=== PATIENT | female | born 1975 ===

== ENCOUNTER 2023-12-23 08:02 | Outpatient (OUT) | payer OTHER, SELFPAY | END 2023-12-23 08:03 | disposition home or self-care (01) | LOC: VC 08:02 | PROVIDERS: PCP Radiology Diagnostic Radiology; Visit Provider Radiology Diagnostic Radiology | DX: I83.813 Varicose veins of bilateral lower extremities with pain (principal) ==

== ENCOUNTER 2024-01-05 08:02 | Outpatient (OUT) | payer OTHER, SELFPAY ==
--- NOTE | 2024-01-05 08:04 | VEIN_ITS ---
Patient Name: SHANITA HYDE MR#: [id number] : 1975 Exam Date: 01/05/2024 Ordering Doctor: DR FRANK VERGARA M.D. RADIOLOGY REPORT PROCEDURE: [facility] COMPREHENSIVE VEIN CENTER - OFFICE VISIT INITIAL COMPARISON: None. PROGRESS NOTES: 49-year-old female who presents with a 10 year history of lower extremity pain swelling and varicose veins, left is worse than the right. The patient describes the pain as dull achy heaviness. The patient rates the pain as a 5 on a scale of 1-10. The patient's symptoms have progressed over the past year. The patient symptoms are exacerbated by prolonged standing or sitting and are partially relieved by rest, leg elevation, exercise and support stockings as well as over the counter ibuprofen. The patient denies any signs and symptoms to suggest arterial ischemia. The patient describes a family history significant for lung cancer, deep vein thrombosis and varicose veins in her mother. Stroke in her maternal grandfather. . Her daughter is 27 years old. No significant past medical history. No past surgeries. The patient is on no prescription medication . No history of deep venous thrombus or pulmonary embolus. See separate history and physical for medication list. No prior treatment for varicose or spider veins. Nursing notes were reviewed. After history and physical exam I discussed at length the pathophysiology of venous hypertension and possible treatments, therapies and strategies available. We discussed at length the importance of elevating the lower extremities above the level of the heart, increased physical activity and compression stocking use. We discussed conservative therapy with compression stockings. We discussed surgical interventions including ligation and stripping, phlebectomy. We discussed intravenous laser ablation, micro foam chemical ablation and injection sclerotherapy. Risks benefits and alternatives were discussed. The patient's questions were answered Ultrasound venous reflux study performed the same day was discussed at length with the patient. The report demonstrates mild right and moderate left great saphenous vein venous insufficiency. Bilateral incompetent varicose veins. PHYSICAL EXAM: The right leg demonstrates no significant varicose veins. Few scattered reticular and spider veins. No subcutaneous edema or skin discoloration. The left leg demonstrates moderate scattered varicose, reticular and spider veins. Mild subcutaneous edema of the ankle. No skin discoloration Both thighs, legs and feet were symmetrically warm to the touch. Good posterior tibial and dorsalis pedis pulses were present bilaterally. VEIN/VC Facility EST Comprehensive IMPRESSION: 1. Mild right and moderate left great saphenous vein venous insufficiency with saphenofemoral junction reflux and dilatation 2. Mild right and moderate left lower extremity in com varicose veins 3. Mild left ankle subcutaneous edema 4. No definite flow significant arterial disease 5. CEAP: C3, Ep, As, Pr PLAN: 1. Endovenous laser ablation of the left great saphenous vein 2. Micro foam chemical ablation left leg incompetent varicose veins 3. Bilateral injection sclerotherapy of reticular and spider veins 4. Long-term use of bilateral thigh or knee high 20-30 mm compression stockings 5. Continued physical activity for symptomatic relief Nurse notes, history and physical were reviewed and confirmed, see attached forms. The nurse was present throughout the physical exam and consultation Dictated by: Frank Vergara MD on 01/05/2024 at 10:23 Approved by: Frank Vergara MD on 01/05/2024 at 10:28
--- NOTE | 2024-01-05 08:04 | VEIN_ITS ---
Patient Name: SHANITA HYDE MR#: [id number] : 1975 Exam Date: 01/05/2024 Ordering Doctor: DR FARNK VERGARA M.D. RADIOLOGY REPORT PROCEDURE: VC EXT VENOUS REFLUX JOSÉ MIGUEL LMTD COMPARISON: None. INDICATIONS: Pain due to varicose veins of bilateral legs I83.813 TECHNIQUE: Duplex imaging of the lower extremity to assess the deep and superficial venous system for the presence of deep or superficial venous incompetence and to document the location and severity of disease. The study includes evaluation of the great saphenous vein (GSV), anterior accessory saphenous vein (AASV) and small saphenous vein (SSV). Patient scanned in reverse Trendelenburg and standing. FINDINGS: RIGHT LOWER EXTREMITY: Saphenofemoral Junction Reflux: Yes 8.0mm 1.0 sec GSV: Diam (mm) Reflux/ Time (sec) Proximal Thigh 3.5 Yes 0.9 Mid Thigh 3.0 No Distal Thigh 2.3 No Prox Calf 2.5 Yes 0.8 Mid Calf 2.0 Yes 0.4 Saphenopopliteal Junction Reflux: 0.7mm No SSV: Proximal Calf 1.3 No Mid Calf 1.7 No AASV: Proximal Thigh 3.1 No Mid Thigh 2.5 No Distal Thigh Thrombi: No acute or chronic thrombus visualized Compressibility: Normal Flow: Normal Preforator: No patent perforators visualized. Tech Note: Patent varicose vein dist/med calf 3.0mm with 0.4s reflux. LEFT LOWER EXTREMITY: Saphenofemoral Junction Reflux: Yes 9.5 mm 1.4 sec GSV: Diam (mm) Reflux/Time (sec) Proximal Thigh 6.9 Yes 1.2 Mid Thigh 5.1 Yes 1.9 Distal Thigh 6.0 Yes 2.0 Prox Calf 5.0 Yes 1.3 Mid Calf 4.7 Yes 1.5 Saphenopopliteal Junction Relux: 3.0 mm No SSV: Proximal Calf 1.7 No Mid Calf 1.5 No AASV: Not present Thrombi: No acute or chronic thrombus visualized Compressibility: Normal Flow: Normal [employer]: No patent perforators visualized. Tech Note: Incompetent GSV. Patent varicose vein prox/med calf 4.9mm with 2.8s reflux. Patent varicose vein mid/med calf 6.5mm with 1.0s reflux. CONCLUSION: 1. Moderate left great saphenous vein venous insufficiency with saphenofemoral junction reflux in dilatation 2. Incompetent bilateral varicose veins, left greater than right Dictated by: Frank Vergara MD on 01/05/2024 at 09:13 Approved by: Frank Vergara MD on 01/05/2024 at 09:15
== END 2024-01-05 08:03 | disposition home or self-care (01) ==
LOC: VC 08:02
PROVIDERS: PCP Radiology Diagnostic Radiology; Visit Provider Radiology Diagnostic Radiology
DX: I83.813 Varicose veins of bilateral lower extremities with pain (principal)
CPT/HCPCS: 93970; G0463

== ENCOUNTER 2024-01-26 08:57 | Outpatient (OUT) | payer OTHER, SELFPAY ==
--- NOTE | 2024-01-26 08:58 | VEIN_ITS ---
[address] [address] Patient Name: SHANITA HYDE MRN: [id number] date: 1975 Sex: F Assigned Patient Location: Current Patient Location: Accession/Order Number: [id number] Exam Date: 01/26/2024 09:00 Report Date: 01/26/2024 10:22 At the request of: MINGO BOUDREAUX Procedure: VC Endovenous Ablation 1VeinLT EXAMINATION: VC Endovenous Ablation 1Vein, left great saphenous vein HISTORY: Pain due to varicose veins of bilateral legs I83.813 COMPARISON: No relevant comparison available. TECHNIQUE: The risks and benefits of the procedure had been previously discussed, and were rediscussed at length. Informed written consent was obtained. Mita Helms and Hammad Diaz assisted. Time out procedure was performed. The left lower extremity was prepared and draped in the usual sterile fashion to allow knee flexion in the sterile field. Duplex ultrasound probe was draped in a sterile cover, sterile transmission gel was used. Venous mapping was performed with the areas of dilation and large tributaries marked. The total length was 28 cm from the entry at the knee to 3 cm below the saphenofemoral junction. The diameter of the greater saphenous vein ranged from 6-7 mm. A 30 gauge needle and 1% buffered lidocaine was used to anesthetize the entry site. A 4 mm incision was made with a scalpel and the saphenous vein was entered percutaneously under direct ultrasound guidance with a micropuncture set, a single stick was successful in gaining access. A micro-guide wire was inserted and the needle removed. A micro-set including a dilator was inserted over the microwire and the needle and dilator were removed. A 0.018 guide wire was inserted through the micro-set and threaded through the saphenous vein to the saphenofemoral junction. The dilator was removed and an introducer sheath was inserted over the wire until the end of the sheath entered the saphenofemoral junction. The dilator and wire were removed and the 600 micron fiber was introduced and placed and positioned so that it extended beyond the sheath and was 3 cm peripheral to the saphenofemoral femoral junction. Final position of the fiber was determined by ultrasound guidance and duplex imaging. Tumescent anesthetic was delivered by ultrasound guidance. 125 cc of fluid was delivered along the entire course of the saphenous vein. The solution consisted of 1000 cc of normal saline with 40 mL of 1% lidocaine and 20 mL of sodium bicarbonate. A final positioning check was made. The energy source was turned on by means of the foot pedal and the fiber and sheath were withdrawn. The total number of Joules delivered was 1369. The laser was active for 171 seconds under continuous pulse, average laser use of 8 J. Laser start time 9:49 AM 01/26/2024 . Laser stop time 9:52 AM 01/26/2024 . A duplex ultrasound revealed compressibility and flow at the saphenofemoral junction immediately after the procedure. Hemostasis at the access site was achieved. The skin incision of the saphenous vein was closed with a 4 x 4. A compression stocking was applied. Postop instructions were given. A follow up appointment was recommended and scheduled. The patient tolerated the procedure well and was discharged in good condition . VEIN/VC Endovenous Ablation 1VeinLT IMPRESSION: Technically successful endovenous laser ablation left great saphenous vein Electronically authenticated by: MINGO BOUDREAUX Date: 01/26/2024 10:22
[2024-01-26] MEDS: LIDOCAINE HCL 1% 100 MG/10 ML MDV INJ (09:22)
[2024-01-26] MEDS: 0.9 % SODIUM CHLORIDE 500 ML, LIDOCAINE HCL 20 ML, SODIUM BICARBONATE 10 MEQ INJ (09:23)
== END 2024-01-26 08:58 | disposition home or self-care (01) ==
LOC: VC 08:57
PROVIDERS: PCP Radiology Diagnostic Radiology; Visit Provider Radiology Diagnostic Radiology
DX: I83.813 Varicose veins of bilateral lower extremities with pain (principal)
CPT/HCPCS: 36478

== ENCOUNTER 2024-02-02 09:27 | Outpatient (OUT) | payer OTHER, SELFPAY ==
--- NOTE | 2024-02-02 09:29 | VEIN_ITS ---
Patient Name: SHANITA HYDE MR#: [id number] : 1975 Exam Date: 02/02/2024 Ordering Doctor: DR MINGO BOUDREAUX M.D. RADIOLOGY REPORT PROCEDURE: FACILITY EST LMTD VEIN CENTER - OFFICE VISIT FOLLOW UP COMPARISON: None. PROGRESS NOTES: The patient reports improvement in leg symptoms. There has been interval reduction in varicosities. The patient has followed our recommendations to walk 20-30 minutes once or twice per day since the procedure. Physical exam demonstrates decrease in varicosities of the leg. Persistent varicosities are identified along the legs bilaterally. Review of the ultrasound performed the same day demonstrates occlusive thrombus extending throughout the treated vein(s), see separate report, consistent with a successful ablation. No thrombus extending into or beyond the saphenofemoral junction. The patient expressed a desire to proceed with treatment of incompetent branch saphenous varicosities. The patient was informed that treatment was a process and would require 1-2 procedures/sessions. VEIN/ Facility EST TD IMPRESSION: 1. Successful ablation of the left great saphenous vein(s). 2. Persistent branch saphenous veins and lower extremity symptoms. PLAN: 1. Microfoam chemical ablation of incompetent branch saphenous varicosities. 2. Sclerotherapy of scattered spider veins. Nurse notes, history and physical were reviewed and confirmed, see attached forms. The nurse was present throughout the physical exam and consultation Dictated by: Chung Hay M.D. on 02/02/2024 at 12:49 Approved by: Chung aHy M.D. on 02/02/2024 at 12:54
--- NOTE | 2024-02-02 09:29 | VEIN_ITS ---
Patient Name: SHANITA HYDE MR#: [id number] : 1975 Exam Date: 02/02/2024 Ordering Doctor: DR MINGO BOUDREAUX M.D. RADIOLOGY REPORT PROCEDURE: VC EXT VENOUS LT LIMITED COMPARISON: None. INDICATIONS: Phlebitis of superficial veins of lt lower extremity I80.02 TECHNIQUE: Lower extremity hidalgo scale and Duplex Doppler evaluation of the deep venous system from the inguinal ligament through the calf veins. FINDINGS: REGION: Left lower extremity. THROMBI: Negative for DVT. Heat induced thrombus visualized 0.9 cm from the SFJ. The heat induced thrombus extends from groin to distal thigh. COMPRESSIBILITY: Non-compressible segments corresponding to thrombus FLOW: Areas of no flow corresponding to thrombus OTHER: CONCLUSION: 1. Successful post ablation occlusion of left great saphenous vein. Dictated by: Chung Hay M.D. on 02/02/2024 at 11:07 Approved by: Chung Hay M.D. on 02/02/2024 at 11:09
--- OUTSIDE RECORDS SUMMARY | 2024-02-02 09:33 | XMS_ITS | CCD ---
Author Organization [facility] Care Team Providers Care Material Disposition Inspector Name Role Phone NONE, XXXX Primary Care Physician Unavailab NOLAN Desai Attending Unavailable Medications Current Medications Medication Drug Class(es) Dates Sig (Normalized) Sig (Original) oseltamivir 75 mg oral capsule (1 source) Neuraminidase Inhibitor Start: 09-26-2023 End: 10-01-2023 take 1 capsule by mouth twice daily Tamiflu 75 mg Cap 75 mg = 1 cap(s), Oral, BID, X 5 day(s), # 10 cap(s), Refills(s) 0, Pharmacy: [id number], 163, cm, 09/26/23 14:39:00 EST, Height/Length Dosing, 57, kg, 09/26/23 14:39:00 EST, Weight Dosing Start Date: 09/26/23 Stop Date: 10/01/23 Status: Ordered Problems Problem Classification Problem Date Documented Da te Episodic/Chronic Influenza (2 sources) Influenza; Translations: [Influenza due to other identified influenza virus with other respiratory manifestations] Onset: 09-26-2023 Episodic Viral infection (1 source) Viral disease 09-26-2023 Episodic Results Test Name Value Interpretation Reference Range Jose parker [facility] Office/Clini c Noteon 09-27-2023 Family Medicine Office/Clinic Note Chief Complaint cough, body aches, temp HPI Staff Shanita is a 48 year old female here for the flu symptoms for 2 days cough, body aches, temp of 102 yesterday took day quill and ibuprofen took a COVID test and it was negative yesterday History of Present Illness Reviewed and agree with above documented HPI by registered medical transcriptionist. Portions of this record may have been created with voice recognition artificial intelligence software, specifically [employer], [employer] and or [employer]. Substitutions may have occurred due to the inherent limitations of voice recognition and artificial intelligence software. Patient is a 48-year-old female who presents to [facility] care, for body aches, nonproductive cough, and fever. Patient states symptoms started yesterday, she had a fever 102, took lufs-ile-sinpunm ibuprofen, states she has been taking sjwl-lzy-bjxpvod DayQuil, has been helping, and NyQuil and night. Patient states she took a test herself at home and was negative for COVID-19, states she is concerned she could have influenza. Patient states she has been able to eat and drink, some discomfort, bloating swallowing. Patient denies having any headaches, dizziness, nausea or vomiting, chills, difficulty swallowing, productive cough, worsening, chest pain, shortness of breath, palpitation, or weakness. Review of Systems PHQ Score Initial Depression Screen Score: 0 SCORE Physical Exam Vitals & Measurements T: 36.6 ?C(Oral) HR: 68(Peripheral) BP: 122/70 SpO2: 99% HT: 64 in HT: 163 cm WT: 57 kg WT: 125.4 lb BMI: 21.45 General: Well developed, well nourished, in no acute distress, patient does appear ill but not septic, no respiratory distress noted. Patient answers questions appropriately and in complete sentences, and follows commands appropriately. Head: Normocephalic/atrauma tic positive upper respiratory infection. No facial swelling or cellulitis. Eyes: Pupils equal, round, and reactive and extraocular movements intact Ears: Bilateral TMs and bilateral external canal are both within normal limits. Hearing is intact. Nose: No deformity, discharge, inflammation, or lesions Mouth: Mucous membranes moist. Normal oropharynx, and posterior pharynx without erythremia, lesions, exudates, or enlarged tonsils. Neck: Neck supple. No masses or palpable cervical nodes. Trachea midline. No mastoid tenderness. Lungs: Normal respiratory effort and clear to auscultation throughout, no wheezing, rales, crackles, or decreased breath sounds noted on examination. Cardio: regular rate and rhythm, no murmur.No chest wall deformity, no chest wall tenderness Extremity: Patient is able to move all 4 extremities equally without any weakness or pain. Neurologic: Grossly normal Skin: No rashes, ulcerations, or suspicious lesions Lymph Nodes: no lad Mental Status: alert, active Assessment/Plan Discuss with patient she is positive for influenza A and influenza B. No breathing treatment or chest imaging were indicated at this time. 48-year-old female presents to [facility] care, for positive influenza A and influenza B, patient works as a longterm, patient did appear ill but not septic, no respiratory distress, difficulty swallowing, pain, dyspnea exertion, palpitation, weakness. Patient was given a prescription for Tamiflu, she is within the window to be treated with it, ultw-zww-wordvor ibuprofen and Tylenol together every 8 hours with food, for body aches, headaches, fevers. Drink plenty water to stay hydrated. Given a work excuse note. Follow-up with primary care provider as needed. 1. Influenza A, (J10.1: Influenza due to other identified influenza virus with other respiratory manifestations)Influe nza B See above Ordered: oseltamivir, 75 mg = 1 cap(s), Oral, BID, X 5 day(s), # 10 cap(s), Refills(s) 0, Pharmacy: [facility], 163, cm, 09/26/23 14:39:00 EST, Height/Length Dosing, 57, kg, 09/26/23 14:39:00 EST, Weight Dosing Orders: Influenza Type A&B POC 90826 Follow-up With When Contact Information NONE, XXXX [phone] Additional Instructions: Patient Education Influenza, Adult, Cpyz-ta-Mfdm Problem List/Past Medical History Ongoing Influenza A Influenza B Viral illness Historical No qualifying data Medications Tamiflu 75 mg Cap, 75 mg= 1 cap(s), Oral, BID Allergies No Known Medication Allergies Social History Tobacco Never (less than 100 in lifetime) Tobacco Use:. Never Smokeless Tobacco Use:., 09/26/2023 Immunizations Vaccine Date Status SARS-CoV-2 (COVID-19) mRNA BNT-162b2 vax 09/15/2021 Recorded SARS-CoV-2 (COVID-19) mRNA BNT-162b2 vax 08/25/2021 Recorded Lab Results Ambulatory Point of Care Results Influenza A POC: Positive (09/26/23 14:54:00) Influenza B POC: Positive (09/26/23 14:54:00) Normal [facility] Comment on above: Result Comment: Elec tronically Signed By: NURIS TEJEDA, NOLAN\.br\Date and Time Signed: 09/27/23 14:24 EST Patient Educationon 09-27-20 Patient Education Infectious Disease Influenza, Adult Influenza is also called the flu. It is an infection in the lungs, nose, and throat (respiratory tract). It spreads easily from person to person (is contagious). The flu causes symptoms that are like a cold, along with high fever and body aches. What are the causes? This condition is caused by the influenza virus. You can get the virus by: ? Breathing in droplets that are in the air after a person infected with the flu coughed or sneezed. ? Touching something that has the virus on it and then touching your mouth, nose, or eyes. What increases the risk? Certain things may make you more likely to get the flu. These include: ? Not washing your hands often. ? Having close contact with many people during cold and flu season. ? Touching your mouth, eyes, or nose without first washing your hands. ? Not getting a flu shot every year. You may have a higher risk for the flu, and serious problems, such as a lung infection (pneumonia), if you: ? Are older than 65. ? Are . ? Have a weakened disease-fighting system (immune system) because of a disease or because you are taking certain medicines. ? Have a long-term (chronic) condition, such as: ? Heart, kidney, or lung disease. ? Diabetes. ? Asthma. ? Have a liver disorder. ? Are very overweight (morbidly obese). ? Have anemia. What are the signs or symptoms? Symptoms usually begin suddenly and last 4?14 days. They may include: ? Fever and chills. ? Headaches, body aches, or muscle aches. ? Sore throat. ? Cough. ? Runny or stuffy (congested) nose. ? Feeling discomfort in your chest. ? Not wanting to eat as much as normal. ? Feeling weak or tired. ? Feeling dizzy. ? Feeling sick to your stomach or throwing up. How is this treated? If the flu is found early, you can be treated with antiviral medicine. This can help to reduce how bad the illness is and how long it lasts. This may be given by mouth or through an IV tube. Taking care of yourself at home can help your symptoms get better. Your doctor may want you to: ? Take pysk-wmw-lhkatym medicines. ? Drink plenty of fluids. The flu often goes away on its own. If you have very bad symptoms or other problems, you may be treated in a hospital. Follow these instructions at home: Activity ? Rest as needed. Get plenty of sleep. ? Stay home from work or school as told by your doctor. ? Do not leave home until you do not have a fever for 24 hours without taking medicine. ? Leave home only to go to your doctor. Eating and drinking ? Take an ORS (oral rehydration solution). This is a drink that is sold at pharmacies and stores. ? Drink enough fluid to keep your pee pale yellow. ? Drink clear fluids in small amounts as you are able. Clear fluids include: ? Water. ? Ice chips. ? Fruit juice mixed with water. ? Low-calorie sports drinks. ? Eat bland foods that are easy to digest. Eat small amounts as you are able. These foods include: ? Bananas. ? Applesauce. ? Rice. ? Lean meats. ? Cabool. ? Crackers. ? Do not eat or drink: ? Fluids that have a lot of sugar or caffeine. ? Alcohol. ? Spicy or fatty foods. General instructions ? Take ifcy-ccf-egsxdav and prescription medicines only as told by your doctor. ? Use a cool mist humidifier to add moisture to the air in your home. This can make it easier for you to breathe. ? When using a cool mist humidifier, clean it daily. Empty water and replace with clean water. ? Cover your mouth and nose when you cough or sneeze. ? Wash your hands with soap and water often and for at least 20 seconds. This is also important after you cough or sneeze. If you cannot use soap and water, use alcohol-based hand poker room manager. ? Keep all follow-up visits. How is this prevented? ? Get a flu shot every year. You may get the flu shot in late summer, fall, or winter. Ask your doctor when you should get your flu shot. ? Avoid contact with people who are sick during fall and winter. This is cold and flu season. Contact a doctor if: ? You get new symptoms. ? You have: ? Chest pain. ? Watery poop (diarrhea). ? A fever. ? Your cough gets worse. ? You start to have more mucus. ? You feel sick to your stomach. ? You throw up. Get help right away if you: ? Have shortness of breath. ? Have trouble breathing. ? Have skin or nails that turn a bluish color. ? Have very bad pain or stiffness in your neck. ? Get a sudden headache. ? Get sudden pain in your face or ear. ? Cannot eat or drink without throwing up. These symptoms may represent a serious problem that is an emergency. Get medical help right away. Call your local emergency services (911 in the [place] ? Do not wait to see if the symptoms will go away. ? Do not drive yourself to the hospital. Summary ? Influenza is also call (more content not included)... Normal [facility] Patient Letter FTon 2022 Patient Letter [facility] [address], [place] [address] September 26, 2023 SHANITA HYDE [address] [place] [address] : 1975 Please excuse HYDE SHANITA from work . Date and/or Time of Absence: From: 09/26/23 May return to work on: 09/29/23 Restrictions: None Comments: Please excuse due to an acute illness. Provider Signature: Nolan Lawler PA-C [facility] [address] [place] [address] Normal [facility] Vital Signs Date Time Vital Sign Value Performing Clinician Facility 09-26-2023 14:37-0500 Blood Pressure Location NOLAN LAWLER [facility] 09-26-2023 14:37-0500 Body temperature 97.88 [degF] NOLAN LAWLER [facility] 09-26-2023 14:37-0500 Diastolic blood pressure 70 mm[Hg] NOLAN LAWLER [facility] 09-26-2023 14:37-0500 Heart rate 68 /min [facility] 09-26-2023 14:37-0500 SaO2% (BldA) [Mass fraction] 99 % [facility] 09-26-2023 14:37-0500 Systolic blood pressure 122 mm[Hg] [facility] Encounters Encounter Date Encounter Type Care Provider Facility Start: 09-26-2023 End: 09-27-2023 ambulatory [facility] Facility:[facility] Start: 09-26-2023 End: 09-26-2023 Patient encounter procedure [facility] Immunizations Immunization Date Immunization Notes Care Provider Fa cility 09-15-2021 SARS-CoV-2 (COVID-19 ) mRNA BNT-162b2 vax [facility] 08-25-2021 SARS-CoV-2 (COVID-19 ) mRNA BNT-162f0 mix [facility] Payers Date Payer Category Payer Unknown [id number] 1975 Unknown [id number] Social History Date Type Detail Facility Start: 09-26-2023 Tobacco smoking status Never s moked tobacco (finding) [facility] Tobacco smoking status Never Felisha [facility] Sex Assigned At Female [facility] Functional Status Date Assessment Result Facility 09-26-2023 Functional Status N/A [facility] Evaluation + Plan note Note Date & Type Note Facility Evaluation + Plan note No data available for this section [facility] Hospital Discharge instructions Note Date & Type Note Facility Hospital Discharge instructions No data available for this section [facility] Progress note Note Date & Type Note Facility Progress note No data available for this section [facility] Summary Purpose Family History No Family History Records Found Advance Directives No Advanced Directives Records Found Additional Source Comments INFORMATION SOURCE (unrecogn ized section and content) DATE CREATED AUTHOR 09/27/2023 [facility] FOR RECORDS PERTAINING TO PATIENTS WHO ARE OR HAVE BEEN ENROLLED IN A CHEMICAL DEPENDENCY/SUBSTANCEABUSE PROGRAM, SOME INFORMATION MAY BE OMITTED. This clinical summary was aggregated from multiple sources. Caution should be exercised in using it in the provision of clinical care. This summary normalizes information from multiple sources, and as a consequence, information in this document may materially change the coding, format and clinical context of patient data. In addition, data may be omitted in some cases. CLINICAL DECISIONS SHOULD BE BASED ON THE PRIMARY CLINICAL RECORDS. [email or web address] [facility]. provides no warranty or guarantee of the accuracy or completeness of information in this document.
== END 2024-02-02 09:28 | disposition home or self-care (01) ==
LOC: VC 09:27
PROVIDERS: PCP Radiology Diagnostic Radiology; Visit Provider Radiology Diagnostic Radiology
DX: I80.02 Phlebitis and thrombophlebitis of superficial vessels of left lower extremity (principal)
CPT/HCPCS: 93971; G0463

== ENCOUNTER 2024-02-10 09:30 | Outpatient (OUT) | payer OTHER, SELFPAY ==
--- NOTE | 2024-02-10 09:33 | VEIN_ITS ---
[address] [address] Patient Name: SHANITA HYDE MRN: [id number] date: 1975 Sex: F Assigned Patient Location: Current Patient Location: Accession/Order Number: [id number] Exam Date: 02/10/2024 09:35 Report Date: 02/10/2024 10:19 At the request of: MINGO BOUDREAUX Procedure: VC INJ Foam Sclerosant WUS ACCOUNTS OFFICER PROCEDURE: VC INJ Foam Sclerosant WUS ACCOUNTS OFFICER COMPARISON: None. HISTORY: I83.813 Painful Varicose Veins Pre-operative Diagnosis: CEAP class 3 venous insufficiency with pain, tenderness, edema and incompetent great saphenous and varicose vein(s), chronic venous insufficiency left leg secondary to venous incompetence Post-operative Diagnosis: CEAP class 3 venous insufficiency with pain, tenderness, edema and incompetent great saphenous and varicose vein(s), chronic venous insufficiency left leg secondary to venous incompetencein(s), chronic venous insufficiency leg secondary to venous incompetence Procedure Performed: 1. Ultrasound-guided microfoam chemical ablation with Varithenaregistered 2. Intraoperative ultrasound guidance Anesthesia: None Indications for Procedure: 49-year-old female who presents with a long history of lower extremity pain and swelling and varicose veins. The patient failed conservative medical therapy including medical compression stockings, exercise and analgesics. Prior procedures include endovenous laser ablation. Multiple incompetent varicosities of the left leg. Duplex scan showed reflux and enlarged diameters up to 4 mm. The patient underwent informed consent including management options where the complications of infection, bleeding, pain, and skin injury were discussed. Particular attention was spent discussing thrombus extension and deep vein thrombosis as well as the possibility of pulmonary embolus and treatment with oral or injectable blood thinners. Procedure: The patient walked to the procedure room. All applicable staff donned appropriate apparel. A procedure timeout was performed to confirm correct patient, correct extremity, correct procedure, and correct room set-up including presence of all applicable supplies, devices, and drugs. A duplex ultrasound, performed by myself confirmed the location and incompetence of branch saphenous varicosities and their course was marked on the skin together with the dilated tributaries. The extent of treatment of the vein and the associated varicosities was determined through ultrasound mapping. The skin was prepped and then punctured with a butterfly needle and advanced under ultrasound guidance. The Varithenaregistered canister was activated and the canister was primed and purged as required in the instructions for use. Varithenaregistered was drawn into a sterile syringe. The following injections were made: 6 cc injected into the distal incompetent patent 5 mm left great saphenous vein with flow into a branch saphenous tributaries 6 cc injected into a 4 mm left mid medial leg varicose vein Varithenaregistered was slowly administered at 0.5-1.0 cc/second with close observation by ultrasound of its course in the vessels. Total volume utilized was: 12cc. Following administration of Varithenaregistered the leg was elevated and the patient was asked to repeatedly dorsiflex the ankle to limit flow of Varithenaregistered into perforating veins. Once appropriate spasm had been confirmed in the treated veins, the vascular catheter was removed from the leg and light pressure was applied over the puncture site for hemostasis. The common femoral and deep superficial veins were then evaluated for flow and compressibility prior to dressing placement. The lower extremity was kept elevated at 45 degrees above the horizontal and cording material was applied over the saphenous segments and tributaries to allow for eccentric compression over the target vessels including the targeted saphenous vein(s). A multilayer dressing was applied consisting of foam pads, coban and thigh-high 20-30 mm Hg compression elastic support hose were placed on the patient. The leg was lowered only after compression had been applied and the patient was immediately ambulatory. The patient ambulated 10 minutes under supervision and was without apparent concerns at time of release. Post-care instructions include advising patient to keep post-treatment bandages in place and dry for 48 hours, avoid extended periods of inactivity, avoid heavy exercise for one week, wear compression stockings on the treated leg continuously for two weeks, to walk daily for 10 minutes over the next month. The patient was instructed to take an anti-inflammatory medicine as needed and to follow up for color duplex scan of the Saphenous veins, the treated branch saphenous varicosities, the adjacent deep veins, and additional treatment within 7 days. PERSONNEL: Hammad Diaz RN Electronically authenticated by: MINGO BOUDREAUX Date: 02/10/2024 10:19
--- OUTSIDE RECORDS SUMMARY | 2024-02-10 09:46 | XMS_ITS | CCD ---
Author Organization [facility] Care Team Providers Care Director Of Search Engine Marketing Name Role Phone NONE, XXXX Primary Care [...] day(s), # 10 cap(s), Refills(s) 0, Pharmacy: [id number], 163, cm, 09/26/23 14:39:00 EST, Height/Length [...] and agree with above documented HPI by medical parasitologist. Portions of this record may have been created with voice recognition artificial intelligence software, specifically [employer], [employer] and or [employer]. Substitutions may have occurred due to the inherent limitations of voice recognition and artificial intelligence software. Patient is a 48-year-old female who presents to [facility] care, for body aches, nonproductive cough, and fever. Patient states symptoms started yesterday, she had a fever 102, took nnnp-byj-gccbxrk ibuprofen, states she has been taking cgfl-ewk-xkhxabp DayQuil, has been helping, and NyQuil and [...] at this time. 48-year-old female presents to [facility] care, for positive influenza A and influenza B, patient works as a long term, patient did appear ill but not septic, no respiratory distress, difficulty swallowing, pain, dyspnea exertion, palpitation, weakness. Patient was given a prescription for Tamiflu, she is within the window to be treated with it, kopd-soh-mqhdojo ibuprofen and Tylenol together every 8 hours [...] day(s), # 10 cap(s), Refills(s) 0, Pharmacy: [facility], 163, cm, 09/26/23 14:39:00 EST, Height/Length Dosing, 57, kg, 09/26/23 14:39:00 EST, Weight Dosing Orders: Influenza Type A&B POC 03682 Follow-up With When Contact Information NONE, XXXX [phone] Additional Instructions: Patient Education Influenza, Adult, Uqpq-fh-Agoi Problem List/Past Medical History Ongoing Influenza A [...] Influenza B POC: Positive (09/26/23 14:54:00) Normal [facility] Comment on above: Result Comment: Elec tronically [...] doctor may want you to: ? Take rgwu-ygb-txlvdzu medicines. ? Drink plenty of fluids. The [...] Applesauce. ? Rice. ? Lean meats. ? [place]. ? Crackers. ? Do not eat or drink: ? Fluids that have a lot of sugar or caffeine. ? Alcohol. ? Spicy or fatty foods. General instructions ? Take gvzy-pmk-xooyloa and prescription medicines only as told by [...] use soap and water, use alcohol-based hand box spring maker. ? Keep all follow-up visits. How is [...] also call (more content not included)... Normal [facility] Patient Letter FTon 2022 Patient Letter [facility] [address], [place] [address] September 26, 2023 SHANITA HYDE [address] [place] [address] : 1975 Please excuse HYDE SHANITA from work . Date and/or Time of Absence: From: 09/26/23 May return to work on: 09/29/23 Restrictions: None Comments: Please excuse due to an acute illness. Provider Signature: Nolan Lawler PA-C [facility] [address] [place] [address] Normal [facility] Vital Signs Date Time Vital Sign Value Performing Clinician Facility 09-26-2023 14:37-0500 Blood Pressure Location NOALN LAWLER [facility] 09-26-2023 14:37-0500 Body temperature 97.88 [degF] NOLAN LAWLER [facility] 09-26-2023 14:37-0500 Diastolic blood pressure 70 mm[Hg] NOLAN LAWLER [facility] 09-26-2023 14:37-0500 Heart rate 68 /min [facility] 09-26-2023 14:37-0500 SaO2% (BldA) [Mass fraction] 99 % [facility] 09-26-2023 14:37-0500 Systolic blood pressure 122 mm[Hg] [facility] Encounters Encounter Date Encounter Type Care Provider Facility Start: 09-26-2023 End: 09-27-2023 ambulatory [facility] Facility:[facility] Start: 09-26-2023 End: 09-26-2023 Patient encounter procedure [facility] Immunizations Immunization Date Immunization Notes Care Provider Fa cility 09-15-2021 SARS-CoV-2 (COVID-19 ) mRNA BNT-162b2 vax [facility] 08-25-2021 SARS-CoV-2 (COVID-19 ) mRNA BNT-162g0 flx [facility] Payers Date Payer Category Payer Unknown [id number] 1975 Unknown [id number] Social History Date Type Detail Facility Start: 09-26-2023 Tobacco smoking status Never s moked tobacco (finding) [facility] Tobacco smoking status Never Felisha [facility] Sex Assigned At Female [facility] Functional Status Date Assessment Result Facility 09-26-2023 Functional Status N/A [facility] Evaluation + Plan note Note Date & Type Note Facility Evaluation + Plan note No data available for this section [facility] Hospital Discharge instructions Note Date & Type Note Facility Hospital Discharge instructions No data available for this section [facility] Progress note Note Date & Type Note Facility Progress note No data available for this section [facility] Summary Purpose Family History No Family History Records Found Advance Directives No Advanced Directives Records Found Additional Source Comments INFORMATION SOURCE (unrecogn ized section and content) DATE CREATED AUTHOR 09/27/[address] [facility] FOR RECORDS PERTAINING TO PATIENTS WHO [...] BE BASED ON THE PRIMARY CLINICAL RECORDS. [facility]. provides no warranty or guarantee of the accuracy or completeness of information in this document.
== END 2024-02-10 09:31 | disposition home or self-care (01) ==
LOC: VC 09:30
PROVIDERS: PCP Radiology Diagnostic Radiology; Visit Provider Radiology Diagnostic Radiology
DX: I83.813 Varicose veins of bilateral lower extremities with pain (principal)
CPT/HCPCS: 36466

== ENCOUNTER 2024-02-16 07:43 | Outpatient (OUT) | payer OTHER, SELFPAY ==
--- NOTE | 2024-02-16 08:08 | VEIN_ITS ---
Patient Name: SHANITA HYDE MR#: [id number] : 1975 Exam Date: 02/16/2024 Ordering Doctor: DR MINGO BOUDREAUX M.D. RADIOLOGY REPORT PROCEDURE: VC EXT VENOUS LT LIMITED COMPARISON: VC EXT VENOUS LT LIMITED, 02/02/2024. INDICATIONS: I80.02 Phlebitis of superficial veins of lt lower extremity TECHNIQUE: Lower extremity hidalgo scale and Duplex Doppler evaluation of the deep venous system from the inguinal ligament through the calf veins. FINDINGS: REGION: Left lower extremity. THROMBI: Negative for DVT. Varithena induced thrombus visualized at distal GSV and mid/med calf. COMPRESSIBILITY: Non-compressible segments corresponding to thrombus FLOW: Areas of no flow corresponding to thrombus OTHER: No patent varicose veins remain. CONCLUSION: 1. Successful post ablation occlusion of left leg treated branch saphenous varicosities. Dictated by: Chung Hay M.D. on 02/16/2024 at 10:15 Approved by: Chung Hay M.D. on 02/16/2024 at 10:21
--- NOTE | 2024-02-16 08:08 | VEIN_ITS ---
Patient Name: SHANITA HYDE MR#: [id number] : 1975 Exam Date: 02/16/2024 Ordering Doctor: DR MINGO BOUDREAUX M.D. RADIOLOGY REPORT PROCEDURE: [facility] EST LMTD VEIN [facility] - OFFICE VISIT FOLLOW UP [facility] PROGRESS NOTES: The patient reports improvement in leg symptoms. There has been interval reduction in varicosities. The patient has followed our recommendations to walk 20-30 minutes once or twice per day since the procedure. Physical exam demonstrates decrease in varicosities of the leg. Persistent spider veins are identified along the legs bilaterally. Review of the ultrasound performed the same day demonstrates occlusive thrombus extending throughout the treated vein(s), see separate report, consistent with a successful ablation. No thrombus extending into or beyond the saphenofemoral junction. The patient expressed a desire to proceed with treatment of spider veins. The patient was informed that treatment was a process and would require 1, possibly 2, procedures/sessions. VEIN/[facility] EST TD IMPRESSION: 1. Successful ablation of the left leg treated branch saphenous varicosities. 2. Persistent spider veins and mild lower extremity symptoms. PLAN: Sclerotherapy of lower extremities for spider veins. Nurse notes, history and physical were reviewed and confirmed, see attached forms. The nurse was present throughout the physical exam and consultation Dictated by: Chung Hay M.D. on 02/16/2024 at 10:21 Approved by: Chung Hay M.D. on 02/16/2024 at 10:23
--- OUTSIDE RECORDS SUMMARY | 2024-02-16 08:18 | XMS_ITS | CCD ---
Author Organization [facility] Care Team Providers Care Commercial Pest Control Representative Name Role Phone NONE, XXXX Primary Care Physician NOLAN Busch Attending Unavailable Medications Current Medications Medication Drug Class(es) Dates Sig (Normalized) Sig (Original) oseltamivir 75 mg oral capsule (1 source) Neuraminidase Inhibitor Start: 09-26-2023 End: 10-01-2023 take 1 capsule by mouth twice daily Tamiflu 75 mg Cap 75 mg = 1 cap(s), Oral, BID, X 5 day(s), # 10 cap(s), Refills(s) 0, Pharmacy: [facility], 163, cm, 09/26/23 14:39:00 EST, Height/Length [...] Results Test Name Value Interpretation Reference Range [facility] Office/[facility]ini [facility] Noteon 09-27-2023 Family [...] agree with above documented HPI by medical associate. Portions of this record may have been created with voice recognition artificial intelligence software, specifically [employer], [employer] and or [employer]. Substitutions may have occurred due to the inherent limitations of voice recognition and artificial intelligence software. Patient is a 48-year-old female who presents to [facility] care, for body aches, nonproductive cough, and fever. Patient states symptoms started yesterday, she had a fever 102, took sewd-wma-voigugx ibuprofen, states she has been taking lbbt-pge-nqkktid DayQuil, has been helping, and NyQuil and [...] at this time. 48-year-old female presents to [facility] care, for positive influenza A and influenza B, patient works as a [employer], patient did appear ill but not septic, no respiratory distress, difficulty swallowing, pain, dyspnea exertion, palpitation, weakness. Patient was given a prescription for Tamiflu, she is within the window to be treated with it, lflg-bvi-fjpeclu ibuprofen and Tylenol together every 8 hours [...] day(s), # 10 cap(s), Refills(s) 0, Pharmacy: [facility], 163, cm, 09/26/23 14:39:00 EST, Height/Length Dosing, 57, kg, 09/26/23 14:39:00 EST, Weight Dosing Orders: Influenza Type A&B POC 96990 Follow-up With When Contact Information NONE, XXXX [phone] Additional Instructions: Patient Education Influenza, Adult, Egbf-yj-Tkac Problem List/Past Medical History Ongoing Influenza A [...] 14:54:00) Influenza B POC: Positive (09/26/23 14:54:00) [facility] Comment on above: Result Comment: Elec [...] doctor may want you to: ? Take bwba-drs-dujufav medicines. ? Drink plenty of fluids. The [...] Applesauce. ? Rice. ? Lean meats. ? [place]. ? Crackers. ? Do not eat or drink: ? Fluids that have a lot of sugar or caffeine. ? Alcohol. ? Spicy or fatty foods. General instructions ? Take ubas-hig-tpqvyfu and prescription medicines only as told by [...] use soap and water, use alcohol-based hand auto body estimator. ? Keep all follow-up visits. How is [...] also call (more content not included)... [facility] Patient Letter FTon 2022 Patient Letter [facility] [address], [place] [address] September 26, 2023 SHANITA HYDE [address] [place] [address] : 1975 Please excuse SHANITA HYDE from work . Date and/or Time of Absence: From: 09/26/23 May return to work on: 09/29/23 Restrictions: None Comments: Please excuse due to an acute illness. Provider Signature: Nolan Lawler PA-C [facility] [address] [place] [address] Normal [facility] Vital Signs Date Time Vital Sign Value Performing Clinician Facility 09-26-2023 14:37-0500 Blood Pressure Location NOLAN LAWLER [facility] 09-26-2023 14:37-0500 Body temperature 97.88 [degF] NOLAN LAWLER [facility] 09-26-2023 14:37-0500 Diastolic blood pressure 70 mm[Hg] NOLAN LAWLER [facility] 09-26-2023 14:37-0500 Heart rate 68 /min [facility] 09-26-2023 14:37-0500 SaO2% (BldA) [Mass fraction] 99 % [facility] 09-26-2023 14:37-0500 Systolic blood pressure 122 mm[Hg] [facility] Encounters Encounter Date Encounter Type Care Provider Facility Start: 09-26-2023 End: 09-27-2023 ambulatory [facility] Facility:[facility] Start: 09-26-2023 End: 09-26-2023 Patient encounter procedure [facility] Immunizations Immunization Date Immunization Notes Care Provider Fa cility 09-15-2021 SARS-CoV-2 (COVID-19 ) mRNA BNT-162b2 vax [facility] 08-25-2021 SARS-CoV-2 (COVID-19 ) mRNA BNT-162b2 vax [facility] Payers Date Payer Category Payer Unknown [id number] 1975 Unknown [id number] Social History Date Type Detail Facility Start: 09-26-2023 Tobacco smoking status Never s moked tobacco (finding) [facility] Tobacco smoking status Never Felisha [facility] Sex Assigned At Female [facility] Functional Status Date Assessment Result Facility 09-26-2023 Functional Status N/A [facility] Evaluation + Plan note Note Date & Type Note Facility Evaluation + Plan note No data available for this section [facility] Hospital Discharge instructions Note Date & Type Note Facility Hospital Discharge instructions No data available for this section [facility] Progress note Note Date & Type Note Facility Progress note No data available for this section [facility] Summary Purpose Family History No Family History Records Found Advance Directives No Advanced Directives Records Found Additional Source Comments INFORMATION SOURCE (unrecogn ized section and content) DATE CREATED AUTHOR 09/27/2023 [facility] FOR RECORDS PERTAINING TO PATIENTS WHO [...] BE BASED ON THE PRIMARY CLINICAL RECORDS. [facility] [employer] [facility]. provides no warranty or guarantee of the accuracy or completeness of information in this document.
== END 2024-02-16 07:44 | disposition home or self-care (01) ==
LOC: VC 07:56
PROVIDERS: PCP Radiology Diagnostic Radiology; Visit Provider Radiology Diagnostic Radiology
DX: I80.02 Phlebitis and thrombophlebitis of superficial vessels of left lower extremity (principal)
CPT/HCPCS: 93971; G0463

== ENCOUNTER 2024-03-02 07:53 | Outpatient (OUT) | payer OTHER, SELFPAY ==
--- NOTE | 2024-03-02 07:58 | VEIN_ITS ---
[address] [address] Patient Name: SHANITA HYDE MRN: [id number] date: 1975 Sex: F Assigned Patient Location: Current Patient Location: Accession/Order Number: [id number] Exam Date: 03/02/2024 08:00 Report Date: 03/02/2024 13:57 At the request of: MINGO BOUDREAUX Procedure: VC INJ Sclerosing SOLMULT Vein EXAMINATION: VC INJ Sclerosing SOLMULT Vein HISTORY: I83.813 Bilateral leg painful varicose veins The risks and benefits of the procedure were explained at length to the patient and informed written consent was obtained. The procedure was performed under sterile technique. The patient's leg was wrapped with Coban and postprocedural verbal and written instructions provided. Hammad Diaz RN was present and assisted. SCLEROSANT: 2mL 0.5% Polidocanol. VEIN(S) INJECTED: 32 veins in the right leg. VISUALIZATION: Ultrasound was not used to visualize the sclerosant. ANESTHESIA: Supercooled air. COMPLICATIONS: None. Electronically authenticated by: ZORAIDA CORDERO Date: 03/02/2024 13:57
--- OUTSIDE RECORDS SUMMARY | 2024-03-02 08:08 | XMS_ITS | CCD ---
Author Organization [facility] Care Team Providers Care Maintenance Planner Name Role Phone NONE, XXXX Primary Care Physician UnavailNOALN Denney Attending Unavailable Isiah Foy Attending Unavailable Allergies Allergy Classification Reported Allergen(s) Allergy Type Date of Onset Reaction(s) Facility (1 source) Penicillin; Translations: [penicillin] Drug Allergy Weal (disorder) [facility] (1 source) No Known Medication Allergies; Translations: [No Known Medication Allergies] Propensity to adverse reactions (disorder) [facility] Repository Medications Current Medications Medication Drug Class(es) Dates Sig (Normalized) Sig (Original) cetirizine hydrochloride 10 mg oral tablet (1 source) Histamine-1 Receptor Antagonist Start: 02-17-2024 End: 02-24-2024 take 1 tablet by mouth once daily cetirizine 10 mg Tab 10 mg = 1 tab(s), Oral, Daily, X 7 day(s), # 7 tab(s), Refills(s) 0, Pharmacy: [facility], 163, cm, 02/17/24 13:23:00 EDT, Height/Length Dosing, 58.7, kg, 02/17/24 13:23:00 EDT, Weight Dosing Start Date: 02/17/24 Stop Date: 02/24/24 Status: Ordered oseltamivir 75 mg oral capsule (1 source) Neuraminidase Inhibitor Start: 09-26-2023 End: 10-01-2023 take 1 capsule by mouth twice daily Tamiflu 75 mg Cap 75 mg = 1 cap(s), Oral, BID, X 5 day(s), # 10 cap(s), Refills(s) 0, Pharmacy: [facility], 163, cm, 09/26/23 14:39:00 EST, Height/Length Dosing, 57, kg, 09/26/23 14:39:00 EST, Weight Dosing Start Date: 09/26/23 Stop Date: 10/01/23 Status: Ordered predniSONE (1 source) Start: 02-17-2024 End: 02-28-2024 predniSONE 10 mg Tab See Instructions, 6 tabs for 2 days,5 tabs for 2 days,4 tabs for 2 days,3 tabs for 2 days,2 tabs for 2 days,1 tab for 2 days, # 42 tab(s), Refills(s) 0, Pharmacy: [facility], 163, cm, 02/17/24 13:23:00 EDT, Height/Length Dosing, 58.7, kg, 02/17/24 13:23:00 EDT, Weight Dosing Start Date: 02/17/24 Stop Date: 02/28/24 Status: Ordered Problems Problem Classification Problem Date Documented Da te Episodic/Chronic Allergic reactions (1 source) Contact dermatitis; Translations: [Unspecified contact dermatitis, unspecified cause] Onset: 02-17-2024 Episodic Influenza (4 sources) Influenza; Translations: [Influenza due to other identified influenza virus with other respiratory manifestations] Onset: 09-26-2023 Episodic Viral infection (2 sources) Viral disease 09-26-2023 Episodic Results Test Name Value Interpretation Reference Range [facility] Ambulatory Visit Summaryon 0 02-17-2024 Ambulatory Visit Summary SHANITA HYDE :1975 Visit Date:02/17/2024 Ambulatory Visit Instructions Your Diagnosis Contact dermatitis Your Care Team Attending Physician - Law TEJEDA, Isiah Patrick Primary Care Physician - NONE, XXXX This Is Your Medications List cetirizine (cetirizine 10 mg Tab) predniSONE (predniSONE 10 mg Tab) Procedures Performed Vein of left calf. Discharge Vitals Heart Rate (Peripheral) 60 Blood Pressure 102/64 Height 163 cm Height 64 in Weight 58.7 kg Weight 129.14 lb BMI 22.09 What to do next You Need to Schedule the Following Appointments Follow Up with NONE, XXXX When: Where: [phone] Medications What How Much When Why Instructions New cetirizine (cetirizine 10 mg Tab) 1 Tablets By Mouth Every day Contact dermatitis Duration: 7 Days Pickup at [facility] New predniSONE (predniSONE 10 mg Tab) See instructions Contact dermatitis 6 tabs for 2 days,5 tabs for 2 days,4 tabs for 2 days,3 tabs for 2 days,2 tabs for 2 days,1 tab for 2 days Pickup at [facility] Pharmacy Information [facility]: [address] [place], [place] [id number] [phone] Allergies penicillin (Hives) Problems Ongoing - Any problem that you are currently receiving treatment for. Influenza A Influenza B Viral illness Patient Survey You may receive a survey via text or e-mail asking about your office visit. Please share your experience with us by completing your survey. We appreciate your feedback and thank you for choosing us for your care. Ashley [facility] Family Medicine Office/Clini c Noteon 02-17-2024 Family Medicine Office/Clinic Note Chief Complaint rash HPI Staff 49 yo female here d/t itchy, red rash on neck and L side x4 days. Pt has tried Calamine lotion and Hydrocortisone cream. Pt states she had a vein procedure 1 week ago. History of Present Illness I have reviewed and verified the staff HPI to be accurate for this encounter. Portions of this record have been created with voice recognition software. Occasional wrong-word or ?ybhyr-v-udax? substitutions may have occurred due to the inherent limitations of voice recognition software. 49 yo female presents today with cc of itchy rash, on the right side of her neck and on her left side x 4 days. Patient states she has been trying ahau-wce-vkaenye calamine lotion and topical hydrocortisone cream without relief of symptoms. Patient states she had a vein procedure approximately 1 week ago states she had a follow-up with a vein specialist in which they believe she has poison alena or contact dermatitis. Patient states she has never had poison alena before so came in for further evaluation today. Patient states she had been outside pulling weeds into elevated flower beds. Patient relates she had just bought a house for an elderly couple last year or about a year and a half ago states they have been out working in the flower beds. States that it was a few days after that the rash developed. She states with her follow-up appointment with the vein specialist he felt that hives were better than location of the site where they injected the foam into the vein. States that it is very rare for patients to get hives from this procedure. Patient states that the itching itching is worse with the heat in the past to 90 degree days. States it itches also more so at nighttime she did buy some gdez-qqw-zbpvoas medication in terms of treating hives which did seem to help with itch. Otherwise she has just been using the calamine and topical hydrocortisone. She denies any history of diabetes. She has no other concerns at this time. Drug allergy to penicillin Review of Systems PHQ Score Initial Depression Screen Score: 0 SCORE ROS negative unless otherwise stated in HPI. Physical Exam Vitals & Measurements HR: 60(Peripheral) BP: 102/64 SpO2: 98% HT: 64 in HT: 163 cm WT: 58.7 kg WT: 129.14 lb BMI: 22.09 General: Well developed, well nourished, in no acute distress Eyes: not assessed Ears: not assessed Nose: not addressed Mouth: not assessed Neck: not assessed Lungs: Lung sounds are clear bilaterally. No wheezing rhonchi or crackles on exam. Cardio: S1, S2, regular rhythm. No murmurs gallops or rubs. Abdomen: not assessed Musculoskeletal: not assessed Extremity: not assessed Neurologic: not assessed Skin: Patient has an erythematous raised bump like rash to the left side of the flank and hip region in addition to the right side of the neck and a couple of small spots on the dorsum of the right hand and left hand. This appears to be a contact dermatitis this is not hives or an urticarial type rash. No weeping or blistering rash no vesicular rash. This is pruritic in nature not painful. Mental Status: Alert and oriented x3. Normal mood and affect Assessment/Plan I spoke with patient regards to treatment for contact dermatitis discussed a prednisone taper in addition to daily Zyrtec to help with allergy and itching like symptoms which patient is in agreement with she will otherwise follow closely with primary care provider or return if needed. 1. Contact dermatitis (L25.9: Unspecified contact dermatitis, unspecified cause) Given exam, will treat with prednisone daily x 12-day taper in addition to cetirizine or Zyrtec 10 mg daily x 7 days duration. Discussed typical duration of contact dermatitis anywhere from 7-21 days typically. Advised steroids of any kind do not make rash completely resolve but help with itching and inflammation. Follow up with PCP if not improving over next 10 days or significantly changing appearance. Patient verbalized understanding of treatment plan. Ordered: cetirizine, 10 mg = 1 tab(s), Oral, Daily, X 7 day(s), # 7 tab(s), Refills(s) 0, Pharmacy: [facility], 163, cm, 02/17/24 13:23:00 EDT, Height/Length Dosing, 58.7, kg, 02/17/24 13:23:00 EDT, Weight Dosing predniSONE, See Instructions, 6 tabs for 2 days,5 tabs for 2 days,4 tabs for 2 days,3 tabs for 2 days,2 tabs for 2 days,1 tab for 2 days, # 42 tab(s), Refills(s) 0, Pharmacy: [facility], 163, cm, 02/17/24 13:23:00 EDT, Height/Length Dosing, 58.7,... Follow-up With When Contact Information NONE, XXXX [phone] Additional Instructions: Patient Education Contact Dermatitis Problem List/Past Medical History Ongoing Influenza A Influenza B Viral illness Historical No qualifying data Procedure/Surgical History Vein of left calf. Medications cetirizine 10 mg Tab, 10 mg= 1 tab(s), Oral, Daily predniSONE 10 mg Tab, See Instructions Allergies penicillin (Hives) Social History Tobacco Never (les (more content not included)... Normal [facility] Comment on above: Result Comment: Elec tronically Signed By: Law TEJEDA, Isiah Patrick\.br\Date and Time Signed: 02/17/24 13:47 EDT Patient Educationon 02-17-20 Patient Education Dermatology Contact Dermatitis Dermatitis is redness, soreness, and swelling (inflammation) of the skin. Contact dermatitis is a reaction to certain substances that touch the skin. Many different substances can cause contact dermatitis. There are two types of contact dermatitis: ? Irritant contact dermatitis. This type is caused by something that irritates your skin, such as having dry hands from washing them too often with soap. This type does not require previous exposure to the substance for a reaction to occur. This is the most common type. ? Allergic contact dermatitis. This type is caused by a substance that you are allergic to, such as poison alena. This type occurs when you have been exposed to the substance (allergen) and develop a sensitivity to it. Dermatitis may develop soon after your first exposure to the allergen, or it may not develop until the next time you are exposed and every time thereafter. What are the causes? Irritant contact dermatitis is most commonly caused by exposure to: ? Makeup. ? Soaps. ? Detergents. ? Bleaches. ? Acids. ? Metal salts, such as nickel. Allergic contact dermatitis is most commonly caused by exposure to: ? Poisonous plants. ? Chemicals. ? Jewelry. ? Latex. ? Medicines. ? Preservatives in products, such as clothing. What increases the risk? You are more likely to develop this condition if you have: ? A job that exposes you to irritants or allergens. ? Certain medical conditions, such as asthma or eczema. What are the signs or symptoms? Symptoms of this condition may occur on your body anywhere the irritant has touched you or is touched by you. ? Symptoms include: ? Dryness or flaking. ? Redness. ? Cracks. ? Itching. ? Pain or a burning feeling. ? Blisters. ? Drainage of small amounts of blood or clear fluid from skin cracks. With allergic contact dermatitis, there may also be swelling in areas such as the eyelids, mouth, or genitals. How is this diagnosed? This condition is diagnosed with a medical history and physical exam. ? A patch skin test may be performed to help determine the cause. ? If the condition is related to your job, you may need to see an occupational therapist assistants. How is this treated? This condition is treated by checking for the cause of the reaction and protecting your skin from further contact. Treatment may also include: ? Steroid creams or ointments. Oral steroid medicines may be needed in more severe cases. ? Antibiotic medicines or antibacterial ointments, if a skin infection is present. ? Antihistamine lotion or an antihistamine taken by mouth to ease itching. ? A bandage (dressing). Follow these instructions at home: Skin care ? Moisturize your skin as needed. ? Apply cool compresses to the affected areas. ? Try applying baking soda paste to your skin. Stir water into baking soda until it reaches a paste-like consistency. ? Do not scratch your skin, and avoid friction to the affected area. ? Avoid the use of soaps, perfumes, and dyes. Medicines ? Take or apply uklj-orl-iprevvw and prescription medicines only as told by your health care provider. ? If you were prescribed an antibiotic medicine, take or apply the antibiotic as told by your health care provider. Do not stop using the antibiotic even if your condition improves. Bathing ? Try taking a bath with: ? Epsom salts. Follow the instructions on the packaging. You can get these at your local pharmacy or grocery store. ? Baking soda. Pour a small amount into the bath as directed by your health care provider. ? Colloidal oatmeal. Follow the instructions on the packaging. You can get this at your local pharmacy or grocery store. ? Bathe less frequently, such as every other day. ? Bathe in lukewarm water. Avoid using hot water. Bandage care ? If you were given a bandage (dressing), change it as told by your health care provider. ? Wash your hands with soap and water before and after you change your dressing. If soap and water are not available, use hand logistics intern. General instructions ? Avoid the substance that caused your reaction. If you do not know what caused it, keep a journal to try to track what caused it. Write down: ? What you eat. ? What cosmetic products you use. ? What you drink. ? What you wear in the affected area. This includes jewelry. ? Check the affected areas every day for signs of infection. Check for: ? More redness, swelling, or pain. ? More fluid or blood. ? Warmth. ? Pus or a bad smell. ? Keep all follow-up visits as told by your health care provider. This is important. Contact a health care provider if: ? Your condition does not improve with treatment. ? Your condition gets worse. ? You have signs of infection such as swelling, tenderness, redness, soreness, or warmth in the affected area. ? You have a fever. ? You have new symptoms. Get help right away if: (more content not included)... Normal [facility] Family Medicine Office/Clini c Noteon 09-27-2023 Family [...] agree with above documented HPI by medical billing coordinator. Portions of this record may have been created with voice recognition artificial intelligence software, specifically [employer], [employer] and or [id number] outdoors. Substitutions may have occurred due to the inherent limitations of voice recognition and artificial intelligence software. Patient is a 48-year-old female who presents to [facility], for body aches, nonproductive cough, and fever. Patient states symptoms started yesterday, she had a fever 102, took ciuc-rmj-bbhocsx ibuprofen, states she has been taking ztsr-pfv-vpqahgj DayQuil, has been helping, and NyQuil and [...] at this time. 48-year-old female presents to [facility], for positive influenza A and influenza B, patient works as a care home, patient did appear ill but not septic, no respiratory distress, difficulty swallowing, pain, dyspnea exertion, palpitation, weakness. Patient was given a prescription for Tamiflu, she is within the window to be treated with it, uvqk-one-mvevkqx ibuprofen and Tylenol together every 8 hours [...] day(s), # 10 cap(s), Refills(s) 0, Pharmacy: [facility], 163, cm, 09/26/23 14:39:00 EST, Height/Length Dosing, 57, kg, 09/26/23 14:39:00 EST, Weight Dosing Orders: Influenza Type A&B POC 14159 Follow-up With When Contact Information NONE, XXXX [phone] Additional Instructions: Patient Education Influenza, Adult, Hpjx-ny-Hjgy Problem List/Past Medical History Ongoing Influenza A [...] Influenza B POC: Positive (09/26/23 14:54:00) Normal [facility] Comment on above: Result Comment: Elec tronically Signed By: NURIS TEJEDA, NOLAN\.br\Date and Time Signed: 09/27/23 14:24 EST Patient Educationon 09-27-20 23 Patient Education Infectious Disease Influenza, Adult Influenza [...] doctor may want you to: ? Take oprp-hjn-hiprmqj medicines. ? Drink plenty of fluids. The [...] Applesauce. ? Rice. ? Lean meats. ? Fallis. ? Crackers. ? Do not eat or drink: ? Fluids that have a lot of sugar or caffeine. ? Alcohol. ? Spicy or fatty foods. General instructions ? Take vslw-wiz-zgvmsmg and prescription medicines only as told by [...] use soap and water, use alcohol-based hand logistics intern. ? Keep all follow-up visits. How is [...] also call (more content not included)... Normal [facility] Patient Letter FTon 2022 Patient Letter [facility] [address], [facility] [place] [address] September 26, 2023 SHANITA HYDE [address] [place] [address] : 1975 Please excuse SHANITA HYDE from work . Date and/or Time of Absence: From: 09/26/23 May return to work on: 09/29/23 Restrictions: None Comments: Please excuse due to an acute illness. Provider Signature: Nolan Hickey PA-C [facility] [address] [place] [address] Normal [facility] Vital Signs Date Time Vital Sign Value Performing Clinician Facility 02-17-2024 13:19-0400 Blood Pressure Location Isiah Foy [facility] 02-17-2024 13:19-0400 Diastolic blood pressure 64 mm[Hg] Isiah Foy [facility] 02-17-2024 13:19-0400 Heart rate 60 /min Isiah Foy [facility] 02-17-2024 13:19-0400 SaO2% (BldA) [Mass fraction] 98 % Isiah Law [facility] 02-17-2024 13:19-0400 Systolic blood pressure 102 mm[Hg] Isiahdeedee Foy [facility] 09-26-2023 14:37-0500 Blood Pressure Location CAMPBELL HICKEY [facility] 09-26-2023 14:37-0500 Body temperature 97.88 [degF] CAMPBELL HICKEY [facility] 09-26-2023 14:37-0500 Diastolic blood pressure 70 mm[Hg] NOLAN HICKEY [facility] 09-26-2023 14:37-0500 Heart rate 68 /min NOLAN HICKEY [facility] 09-26-2023 14:37-0500 SaO2% (BldA) [Mass fraction] 99 % NOLAN HICKEY [facility] 09-26-2023 14:37-0500 Systolic blood pressure 122 mm[Hg] NOLAN HICKEY [facility] Encounters Encounter Date Encounter Type Care Provider Facility Start: 02-17-2024 End: 02-18-2024 ambulatory Isiah Foy Facility:[facility] Start: 02-17-2024 End: 02-17-2024 Patient encounter procedure Isiah Foy [facility] Start: 09-26-2023 End: 09-27-2023 ambulatory [facility] Facility:[facility] Start: 09-26-2023 End: 09-26-2023 Patient encounter procedure [facility] Procedures Date Procedure Procedure Detail Performing Clinician Structure of vein of left calf Isiah Foy Immunizations Immunization Date Immunization Notes Care Provider Fa cility 09-15-2021 SARS-CoV-2 (COVID-19 ) [facility] 08-25-2021 SARS-CoV-2 (COVID-19 ) mRNA BNT-162b2 [facility] Payers Date Payer Category Payer Unknown [id number] 1975 Unknown [id number] 1975 Unknown [id number] Social History Date Type Detail Facility Start: 09-26-2023 End: 02-17-2024 Tobacco smoking status Never smoked tobacco (finding) [facility] Tobacco smoking status Never [facility] Sex Assigned At Female [facility] Functional Status Date Assessment Result Facility 02-17-2024 Functional Status N/A [facility] 09-26-2023 Functional Status N/A [facility] Hospital Discharge instructions 02-17-2024 Note Date & Type Note Facility 02-17-2024 Hospital Discharg e instructions Patient Education 02/17/2024 13:46:41 Contact Dermatitis Contact Dermatitis Dermatitis is redness, soreness, and swelling (inflammation) of the skin. Contact dermatitis is a reaction to certain substances that touch the skin. Many different substances can cause contact dermatitis. There are two types of contact dermatitis: Irritant contact dermatitis. This type is caused by something that irritates your skin, such as having dry hands from washing them too often with soap. This type does not require previous exposure to the substance for a reaction to occur. This is the most common type. Allergic contact dermatitis. This type is caused by a substance that you are allergic to, such as poison alena. This type occurs when you have been exposed to the substance (allergen) and develop a sensitivity to it. Dermatitis may develop soon after your first exposure to the allergen, or it may not develop until the next time you are exposed and every time thereafter. What are the causes? Irritant contact dermatitis is most commonly caused by exposure to: Makeup. Soaps. Detergents. Bleaches. Acids. Metal salts, such as nickel. Allergic contact dermatitis is most commonly caused by exposure to: Poisonous plants. Chemicals. Jewelry. Latex. Medicines. Preservatives in products, such as clothing. What increases the risk? You are more likely to develop this condition if you have: A job that exposes you to irritants or allergens. Certain medical conditions, such as asthma or eczema. What are the signs or symptoms? Symptoms of this condition may occur on your body anywhere the irritant has touched you or is touched by you. Symptoms include: ?Dryness or flaking. ?Redness. ?Cracks. ?Itching. ?Pain or a burning feeling. ?Blisters. ?Drainage of small amounts of blood or clear fluid from skin cracks. With allergic contact dermatitis, there may also be swelling in areas such as the eyelids, mouth, or genitals. How is this diagnosed? This condition is diagnosed with a medical history and physical exam. A patch skin test may be performed to help determine the cause. If the condition is related to your job, you may need to see an occupational therapist assistants. How is this treated? This condition is treated by checking for the cause of the reaction and protecting your skin from further contact. Treatment may also include: Steroid creams or ointments. Oral steroid medicines may be needed in more severe cases. Antibiotic medicines or antibacterial ointments, if a skin infection is present. Antihistamine lotion or an antihistamine taken by mouth to ease itching. A bandage (dressing). Follow these instructions at home: Skin care Moisturize your skin as needed. Apply cool compresses to the affected areas. Try applying baking soda paste to your skin. Stir water into baking soda until it reaches a paste-like consistency. Do not scratch your skin, and avoid friction to the affected area. Avoid the use of soaps, perfumes, and dyes. Medicines Take or apply bqed-gaz-nqvrqvm and prescription medicines only as told by your health care provider. If you were prescribed an antibiotic medicine, take or apply the antibiotic as told by your health care provider. Do not stop using the antibiotic even if your condition improves. Bathing Try taking a bath with: ?Epsom salts. Follow the instructions on the packaging. You can get these at your local pharmacy or grocery store. ?Baking soda. Pour a small amount into the bath as directed by your health care provider. ?Colloidal oatmeal. Follow the instructions on the packaging. You can get this at your local pharmacy or grocery store. Bathe less frequently, such as every other day. Bathe in lukewarm water. Avoid using hot water. Bandage care If you were given a bandage (dressing), change it as told by your health care provider. Wash your hands with soap and water before and after you change your dressing. If soap and water are not available, use hand logistics intern. General instructions Avoid the substance that caused your reaction. If you do not know what caused it, keep a journal to try to track what caused it. Write down: ?What you eat. ?What cosmetic products you use. ?What you drink. ?What you wear in the affected area. This includes jewelry. Check the affected areas every day for signs of infection. Check for: ?More redness, swelling, or pain. ?More fluid or blood. ?Warmth. ?Pus or a bad smell. Keep all follow-up visits as told by your health care provider. This is important. Contact a health care provider if: Your condition does not improve with treatment. Your condition gets worse. You have signs of infection such as swelling, tenderness, redness, soreness, or warmth in the affected area. You have a fever. You have new symptoms. Get help right away if: You have a severe headache, neck pain, or neck stiffness. You vomit. You feel very sleepy. You notice red streaks coming from the affected area. Your bone or joint underneath the affected area becomes painful after the skin has healed. The affected area turns darker. You have difficulty breathing. Summary Dermatitis is redness, soreness, and swelling (inflammation) of the skin. Contact dermatitis is a reaction to certain substances that touch the skin. Symptoms of this condition may occur on your body anywhere the irritant has touched you or is touched by you. This condition is treated by figuring out what caused the reaction and protecting your skin from further contact. Treatment may also include medicines and skin care. Avoid the substance that caused your reaction. If you do not know what caused it, keep a journal to try to track what caused it. Contact a health care provider if your condition gets worse or you have signs of infection such as swelling, tenderness, redness, soreness, or warmth in the affected area. This information is not intended to replace advice given to you by your health care provider. Make sure you discuss any questions you have with your health care provider. Document Revised: 06/30/2022 Document Reviewed: 06/30/2022 [employer] Patient Education 2022 goTenna. Follow Up Care 02/17/2024 13:00:14 With:NONE, XXXX Address: [phone] When: Unknown [facility] Evaluation + Plan note Note Date & Type Note Facility Evaluation + Plan note No data available for this section [facility] Hospital Discharge instructions Note Date & Type Note Facility Hospital Discharge instructions No data available for this section [facility] Progress note Note Date & Type Note Facility Progress note No data available for this section [facility] Care Summary Purpose Family History No Family History Records Found Advance Directives No Advanced Directives Records Found Additional Source Comments INFORMATION SOURCE (unrecogn ized section and content) DATE CREATED AUTHOR 02/19/2024 [facility] FOR RECORDS PERTAINING TO PATIENTS WHO ARE [...] BE BASED ON THE PRIMARY CLINICAL RECORDS. [facility] PT [place] [employer] [facility]. provides no warranty or guarantee of the accuracy or completeness of information in this document.
== END 2024-03-02 07:54 | disposition home or self-care (01) ==
LOC: VC 07:56
PROVIDERS: PCP Radiology Diagnostic Radiology; Visit Provider Radiology Diagnostic Radiology
DX: I83.813 Varicose veins of bilateral lower extremities with pain (principal)
CPT/HCPCS: 36471

== ENCOUNTER 2024-03-22 07:57 | Outpatient (OUT) | payer OTHER, SELFPAY ==
--- NOTE | 2024-03-22 08:01 | VEIN_ITS ---
[address] [address] Patient Name: SHANITA HYDE MRN: [id number] date: 1975 Sex: F Assigned Patient Location: Current Patient Location: Accession/Order Number: [id number] Exam Date: 03/22/2024 08:05 Report Date: 03/22/2024 09:26 At the request of: MINGO BOUDREAUX Procedure: VC INJ Sclerosing SOLMULT Vein EXAMINATION: VC INJ Sclerosing SOLMULT Vein HISTORY: I83.813 Bilateral leg painful varicose veins COMPARISON: No relevant comparison available. TECHNIQUE: The risks and benefits of the procedure were explained at length to the patient and informed written consent was obtained. Hammad Diaz was present and assisted. The procedure was performed under sterile technique. The patient's leg was wrapped with Coban and postprocedural verbal and written instructions provided. SCLEROSANT: 4 cc, 0.5% polidocanol VEIN(S) INJECTED: 31 veins in the left leg VISUALIZATION: Ultrasound was not used to visualize the sclerosant ANESTHESIA: Supercooled air COMPLICATIONS: None VEIN/VC INJ Sclerosing SOLMULT Vein IMPRESSION: Technically successful sclerotherapy as described Electronically authenticated by: MINGO BOUDREAUX Date: 03/22/2024 09:26
--- OUTSIDE RECORDS SUMMARY | 2024-03-22 08:03 | XMS_ITS ---
Patient Summarization (C-CDA 2.1 CCD) Created on: March 22, 2024 SHANITA HYDE : 1975 Sex: Female Author Organization Sample organization Care Team Providers Care Biostatistician Name Role Phone NONE, XXXX Primary Care Physician NOLAN Busch Attending Unavailable Isiah Foy Attending Unavailable Allergies Allergy Classification Reported Allergen(s) Allergy Type Date of Onset Reaction(s) Facility (1 source) Penicillin; Translations: [penicillin] Drug Allergy Weal (disorder) [facility] (1 source) No Known Medication Allergies; Translations: [No Known Medication Allergies] Propensity to adverse reactions (disorder) [facility] Repository Encounters Encounter Date Encounter Type Care Provider Facility Start: 02-17-2024 End: 02-18-2024 ambulatory Isiah Foy Facility:[facility] Start: 02-17-2024 End: 02-17-2024 Patient encounter procedure Isiah Foy [facility] Start: 09-26-2023 End: 09-27-2023 ambulatory [facility] Start: 09-26-2023 End: 09-26-2023 Patient encounter procedure NOLAN WALTONTIZ [facility] Immunizations Immunization Date Immunization Notes Care Provider Fa cility 09-15-2021 SARS-CoV-2 (COVID-19 ) mRNA BNT-162b2 [facility] 08-25-2021 SARS-CoV-2 (COVID-19 ) mRNA BNT-162b2 [facility] Medications Current Medications Medication Drug Class(es) Dates Sig (Normalized) Sig (Original) cetirizine hydrochloride 10 mg oral tablet (1 source) Histamine-1 Receptor Antagonist Start: 02-17-2024 End: 02-24-2024 take 1 tablet by mouth once daily cetirizine 10 mg Tab 10 mg = 1 tab(s), Oral, Daily, X 7 day(s), # 7 tab(s), Refills(s) 0, Pharmacy: [id number], 163, cm, 02/17/24 13:23:00 EDT, Height/Length Dosing, 58.7, kg, 02/17/24 13:23:00 EDT, Weight Dosing Start Date: 02/17/24 Stop Date: 02/24/24 Status: Ordered oseltamivir 75 mg oral capsule (1 source) Neuraminidase Inhibitor Start: 09-26-2023 End: 10-01-2023 take 1 capsule by mouth twice daily Tamiflu 75 mg Cap 75 mg = 1 cap(s), Oral, BID, X 5 day(s), # 10 cap(s), Refills(s) 0, Pharmacy: [facility], 163, cm, 09/26/23 14:39:00 EST, Height/Length [...] days, # 42 tab(s), Refills(s) 0, Pharmacy: [facility], 163, cm, 02/17/24 13:23:00 EDT, Height/Length Dosing, 58.7, kg, 02/17/24 13:23:00 EDT, Weight Dosing Start Date: 02/17/24 Stop Date: 02/28/24 Status: Ordered Payers Date Payer Category Payer Unknown [id number] 1975 Unknown [id number] 1975 Unknown [id number] Problems Problem Classification Problem Date Documented Da te Episodic/Chronic Allergic reactions (1 source) Contact dermatitis; Translations: [Unspecified contact dermatitis, unspecified cause] Onset: 02-17-2024 Episodic Influenza (4 sources) Influenza; Translations: [Influenza due to other identified influenza virus with other respiratory manifestations] Onset: 09-26-2023 Episodic Viral infection (2 sources) Viral disease 09-26-2023 Episodic Procedures Date Procedure Procedure Detail Performing Clinician Structure of vein of left calf Isiah Foy Results Test Name Value Interpretation Reference Range Facil ity Ambulatory Visit Summaryon 0 02-17-2024 Ambulatory Visit [...] Up with NONE, XXXX When: Where: [phone] Medications What How Much When Why Instructions New cetirizine (cetirizine 10 mg Tab) 1 Tablets By Mouth Every day Contact dermatitis Duration: 7 Days Pickup at [facility] New predniSONE (predniSONE 10 mg Tab) See instructions Contact dermatitis 6 tabs for 2 days,5 tabs for 2 days,4 tabs for 2 days,3 tabs for 2 days,2 tabs for 2 days,1 tab for 2 days Pickup at [facility] Pharmacy Information [facility]: [address] [place], [place] [id number] [phone] Allergies penicillin (Hives) Problems Ongoing - Any problem that you are currently receiving treatment for. Influenza A Influenza B Viral illness Patient Survey You may receive a survey via text or e-mail asking about your office visit. Please share your experience with us by completing your survey. We appreciate your feedback and thank you for choosing us for your care. Ashley [facility] Family Medicine Office/Clini c Noteon 02-17-2024 Family [...] with voice recognition software. Occasional wrong-word or ?uobun-e-pftd? substitutions may have occurred due to the inherent limitations of voice recognition software. 49 yo female presents today with cc of itchy rash, on the right side of her neck and on her left side x 4 days. Patient states she has been trying rhmd-bny-myjqzke calamine lotion and topical hydrocortisone cream without [...] so at nighttime she did buy some fezy-oiz-pilfqrg medication in terms of treating hives which [...] day(s), # 7 tab(s), Refills(s) 0, Pharmacy: [facility], 163, cm, 02/17/24 13:23:00 EDT, Height/Length Dosing, 58.7, kg, 02/17/24 13:23:00 EDT, Weight Dosing predniSONE, See Instructions, 6 tabs for 2 days,5 tabs for 2 days,4 tabs for 2 days,3 tabs for 2 days,2 tabs for 2 days,1 tab for 2 days, # 42 tab(s), Refills(s) 0, Pharmacy: [facility], 163, cm, 02/17/24 13:23:00 EDT, Height/Length Dosing, 58.7,... Follow-up With When Contact Information NONE, XXXX [phone] Additional Instructions: Patient Education Contact Dermatitis Problem List/Past Medical History Ongoing Influenza A Influenza B Viral illness Historical No qualifying data Procedure/Surgical History Vein of left calf. Medications cetirizine 10 mg Tab, 10 mg= 1 tab(s), Oral, Daily predniSONE 10 mg Tab, See Instructions Allergies penicillin (Hives) Social History Tobacco Never (les (more content not included)... Normal [facility] Comment on above: Result Comment: Elec tronically [...] job, you may need to see an event specialist product demonstrator. How is this treated? This condition is [...] and dyes. Medicines ? Take or apply zunj-skt-ouhcobc and prescription medicines only as told by [...] and water are not available, use hand tare man. General instructions ? Avoid the substance that [...] away if: (more content not included)... Normal [facility] Family Medicine Office/Clini c Notepiyush 09-27-2023 Family Medicine Office/Clinic Note Chief Complaint cough, body aches, temp HPI Staff Shanita is a 48 year old female here for the flu symptoms for 2 days cough, body aches, temp of 102 yesterday took day quill and ibuprofen took a COVID test and it was negative yesterday History of Present Illness Reviewed and agree with above documented HPI by registered medical assistant. Portions of this record may have been created with voice recognition artificial intelligence software, specifically [employer]Net, Clink and or SpaBooker. Substitutions may have occurred due to the inherent limitations of voice recognition and artificial intelligence software. Patient is a 48-year-old female who presents to [facility], for body aches, nonproductive cough, and fever. Patient states symptoms started yesterday, she had a fever 102, took yfeo-dok-tuwvnde ibuprofen, states she has been taking vqbp-bze-chzishx DayQuil, has been helping, and NyQuil and [...] at this time. 48-year-old female presents to [facility], for positive influenza A and influenza B, patient works as a jail, patient did appear ill but not septic, no respiratory distress, difficulty swallowing, pain, dyspnea exertion, palpitation, weakness. Patient was given a prescription for Tamiflu, she is within the window to be treated with it, onjj-fxn-cbenzrx ibuprofen and Tylenol together every 8 hours [...] day(s), # 10 cap(s), Refills(s) 0, Pharmacy: [facility], 163, cm, 09/26/23 14:39:00 EST, Height/Length Dosing, 57, kg, 09/26/23 14:39:00 EST, Weight Dosing Orders: Influenza Type A&B POC [id number] Follow-up With When Contact Information NONE, XXXX [phone] Additional Instructions: Patient Education Influenza, Adult, Ubjm-zt-Voxz Problem List/Past Medical History Ongoing Influenza A [...] Influenza B POC: Positive (09/26/23 14:54:00) Normal [facility] Comment on above: Result Comment: Elec tronically [...] doctor may want you to: ? Take ugvz-cna-mstuohi medicines. ? Drink plenty of fluids. The [...] Applesauce. ? Rice. ? Lean meats. ? [place]. ? Crackers. ? Do not eat or drink: ? Fluids that have a lot of sugar or caffeine. ? Alcohol. ? Spicy or fatty foods. General instructions ? Take fkrd-kqm-rvsqslr and prescription medicines only as told by [...] use soap and water, use alcohol-based hand tare man. ? Keep all follow-up visits. How is [...] also call (more content not included)... Normal [facility] Patient Letter FTon 2022 Patient Letter [facility] [place] [place] [address], [facility] [place] [address] September 26, 2023 SHANITA HYDE [address] [place] [address] : 1975 Please excuse HYDE, SHANITA from work . Date and/or Time of Absence: From: 09/26/23 May return to work on: 09/29/23 Restrictions: None Comments: Please excuse due to an acute illness. Provider Signature: Nolan Lawler PA-C [facility] [address] [place] [address] [facility] Social History Date Type Detail Facility Start: 09-26-2023 End: 02-17-2024 Tobacco smoking status Never smoked tobacco (finding) [facility] Tobacco smoking status Never Felisha [facility] Sex Assigned At Female [facility] Vital Signs Date Time Vital Sign Value Performing Clinician Facility 02-17-2024 13:19-0400 Blood Pressure Location Isiah Acosta [facility] 02-17-2024 13:19-0400 Diastolic blood pressure 64 mm[Hg] Isiah Acosta [facility] 02-17-2024 13:19-0400 Heart rate 60 /min Isiah Foy [facility] 02-17-2024 13:19-0400 SaO2% (BldA) [Mass fraction] 98 % Isiah Foy [facility] 02-17-2024 13:19-0400 Systolic blood pressure 102 mm[Hg] Isiah Foy [facility] 09-26-2023 14:37-0500 Blood Pressure Location [place] LAWLER [facility] 09-26-2023 14:37-0500 Body temperature 97.88 [degF] [place] LAWL[place] [facility] 09-26-2023 14:37-0500 Diastolic blood pressure 70 mm[Hg] [place] [facility] 09-26-2023 14:37-0500 Heart rate 68 /min [place] LA[place] [facility] 09-26-2023 14:37-0500 SaO2% (BldA) [Mass fraction] 99 % [place] [facility] 09-26-2023 14:37-0500 Systolic blood pressure 122 mm[Hg] [place] LAWL[place] [facility] Functional Status Date Assessment Result Facility 02-17-2024 Functional Status N/A [facility] 09-26-2023 Functional Status N/A [facility] Hospital Discharge instructions 02-17-2024 Note [...] job, you may need to see an event specialist product demonstrator. How is this treated? This condition is [...] perfumes, and dyes. Medicines Take or apply wjqi-dpt-gyuvyah and prescription medicines only as told by [...] and water are not available, use hand tare man. General instructions Avoid the substance that caused [...] provider. Document Revised: 06/30/2022 Document Reviewed: 06/30/2022 [employer] Patient Education 2022 2-Observe. Follow Up Care 02/17/2024 13:00:14 With:NONE, XXXX Address: [phone] When: Unknown [facility] Evaluation + Plan note Note Date & Type Note Facility Evaluation + Plan note No data available for this section [facility] Hospital Discharge instructions Note Date & Type Note Facility Hospital Discharge instructions No data available for this section [facility] Progress note Note Date & Type Note Facility Progress note No data available for this section [facility] Summary Purpose Family History No Family History Records Found Advance Directives No Advanced Directives Records Found Additional Source Comments INFORMATION SOURCE (unrecogn ized section and content) DATE CREATED AUTHOR 02/19/2024 [facility] FOR RECORDS PERTAINING TO PATIENTS WHO [...] BE BASED ON THE PRIMARY CLINICAL RECORDS. [facility] [facility]. provides no warranty or guarantee of the accuracy or completeness of information in this document.
== END 2024-03-22 07:58 | disposition home or self-care (01) ==
LOC: VC 07:58
PROVIDERS: PCP Radiology Diagnostic Radiology; Visit Provider Radiology Diagnostic Radiology
DX: I83.813 Varicose veins of bilateral lower extremities with pain (principal)
CPT/HCPCS: 36471